=== PATIENT | male | born 1980 | race Caucasian/White ===

== ENCOUNTER 2016-06-26 20:44 | Emergency (ER) | payer SELFPAY ==
[2016-06-26] MEDS ORDERED: IOPAMIDOL 370 (76%) 100 ML VIAL IV ONE (20:45)
[2016-06-26] MEDS ORDERED: SODIUM CHLORIDE 0.9% 1,000 ML ONE (21:30)
[2016-06-26 21:51] LABS: ABSOLUTE NEUTROPHIL COUNT 7.3 K/mm3 (1.8-7.7); BASO % 0.2 % (0.2-1.0); EOS # 0.1 (0.0-0.5); EOS % 0.7 % (0.9-2.9); HEMATOCRIT 49.3 % (32.0-52.0); HEMOGLOBIN 16.4 gm/l (14.0-18.0); IMM NEUT% 0.3 % (0-1); LYMPH # 2.4 (1.0-4.8); LYMPH % 22.2 % (15-45); MEAN CELL VOLUME 81.8 fl (80.0-94.0); MEAN CORPUSCULAR HEMOGLOBIN 27.2 pg (27.0-31.0); MEAN CORPUSCULAR HGB CONC 33.3 g/dl (33.0-37.0); MEAN PLATELET VOLUME 12.3 fl (7.4-10.4); MONO # 0.8 (0.0-0.8); MONO % 7.8 % (4-12); NEUT % 68.8 % (43-75); PLATELET COUNT 207 K/mm3 (130-400); RED CELL DISTRIBUTION WIDTH 12.8 % (11.5-14.5)
[2016-06-26 21:59] LABS: INR 0.9; PROTHROMBIN TIME 9.4 SECONDS (9.3-11.4)
[2016-06-26 22:04] LABS: ALB/GLOB RATIO 1.4 (>1.0); ALBUMIN 4.6 gm/dL (3.5-5.7); CALCIUM 9.5 mg/dL (8.6-10.3)
[2016-06-26 22:23] LABS: SPECIFIC GRAVITY 1.025 (1.001-1.030); URINE BILIRUBIN NEGATIVE (NEGATIVE); URINE BLOOD 4+ (NEGATIVE); URINE GLUCOSE (UA) NEGATIVE (NEGATIVE); URINE LEUKOCYTE ESTERASE TRACE (NEGATIVE); URINE NITRITE NEGATIVE (NEGATIVE); URINE PROTEIN 2+ (NEGATIVE); URINE UROBILINOGEN 1 mg/dL (0-1 mg/dl)
[2016-06-26 22:30] LABS: URINE APPEARANCE CLOUDY; URINE COLOR BROWN
[2016-06-26 22:32] LABS: URINE BACTERIA TRACE; URINE CRYSTALS 3-5 CA OXALATE /hpf; URINE RBC PACKED /hpf
--- NOTE | 2016-06-27 09:03 | CT ---
CT ABDOMEN AND PELVIS WITH CONTRAST HISTORY: Painless hematuria. History of renal calculi. TECHNIQUE: Following intravenous administration of 100 mL Isovue-370, contiguous axial images were acquired from the lung bases to the ischial tuberosities. Oral contrast was not administered. COMPARISON:None. FINDINGS: LUNG BASES: No gross airspace consolidation or pleural effusion. LIVER: Fatty infiltration of the liver, no focal lesions. SPLEEN: No focal lesion. PANCREAS: No focal lesion. ADRENAL GLANDS: No mass effect. KIDNEYS: Nonobstructive right renal pelvis calculus measuring 9 mm in size. Nonobstructive right renal calculus 3 mm in size. No collecting system dilatation. Solitary right kidney. No solid renal mass. GALLBLADDER: Contracted appearance. BOWEL: Moderate fecal loading. Limited assessment of the distal colon due to decompression. No abnormal small bowel dilatation. Fatty infiltration of the distal small bowel suggests prior inflammatory episode. Distal colonic diverticulosis without features of diverticulitis. APPENDIX: Normal gas-filled appendix. PELVIC ORGANS: No gross mass effect. Inguinal regions: Bilateral fatty inguinal hernias. FREE FLUID: No gross free fluid identified. ABDOMINOPELVIC LYMPH NODES: No abnormally enlarged lymph nodes identified. ABDOMINAL AORTA: Normal caliber. OSSEOUS STRUCTURES: No grossly destructive lesions. IMPRESSION: 1. Solitary right kidney with no evidence of obstruction. Nonobstructive right renal and right renal pelvis calculi. No solid renal mass identified. 2. Fatty infiltration the liver. 3. Fatty inguinal hernia formation. 4. Colonic diverticulosis without diverticulitis. Normal appendix. Preliminary report relayed to the Emergency Medicine medical service by Dr. Guy on 06/26/2016 at 2307 hours.
== END 2016-06-27 00:49 | disposition home or self-care (01) ==
LOC: ED 20:44
DX: N20.0 Calculus of kidney (principal); R31.9 Hematuria, unspecified; Z87.442 Personal history of urinary calculi; Z90.5 Acquired absence of kidney
CPT/HCPCS: 85025; 82550; 87086; 80053; 85610; 81001; 74177; 99284 ×2; 96360; J7030; Q9967